=== PATIENT | male | born 1980 | race Two or more races ===

== ENCOUNTER 2023-09-16 08:25 | Emergency (ER) | payer BC ==
[~2023-09-16] VITALS: Ht 177.8 cm; Wt 111.8 kg
[2023-09-16 08:53] VITALS: BP 145/57; PULSE 67; RESP 16; TEMP 98.3; O2SAT 96
[2023-09-16] MEDS: KETOROLAC TROMETH 60MG/2ML VIAL IM ONE (09:16)
[2023-09-16] MEDS ORDERED: IBUP-1456 PO (09:42)
[2023-09-16] MEDS ORDERED: PRED20TA2 PO (09:42)
== END 2023-09-16 09:53 | disposition home or self-care (01) ==
LOC: ER 08:25 → EDSEX 08:25 → ER 09:51
DX: S39.012A Strain of muscle, fascia and tendon of lower back, initial encounter (principal); M54.41 Lumbago with sciatica, right side; Z79.899 Other long term (current) drug therapy; X50.0XXA Overexertion from strenuous movement or load, initial encounter; Y93.89 Activity, other specified; Y92.89 Other specified places as the place of occurrence of the external cause; Y99.8 Other external cause status
CPT/HCPCS: 72100; 96372; 99283; J1885